=== PATIENT | male | born 1990 ===

== ENCOUNTER 2017-02-20 07:53 | Emergency (ER) | payer OTHER ==
[2017-02-20 08:03] VITALS: BP 116/77; PULSE 84; RESP 20; TEMP 98.4; O2SAT 99
--- NOTE | 2017-02-20 08:21 | C.PDOC ---
History Of Present Illness <Lilo Sebastian - Last Filed: 02/20/17 08:21> <Annetta Stack - Last Filed: 02/21/17 07:14> 26 year old male presents to ED with complaints of midsternal chest pain after injury 2 days ago. He reports throwing trash out and fell out of dumpster hitting his chest. Patient reports pain with movement and deep inspiration. He has not taken any meds and denies any other injury. (Annetta Stack) <Lilo Sebastian - Last Filed: 02/20/17 08:21> - HPI History Per: Patient History/Exam Limitations: no limitations Onset/Duration Of Symptoms: Days <Annetta Stack - Last Filed: 02/21/17 07:14> - HPI Chief Complaint (Nursing): Trauma Past Medical History - Medical History PMH: Denies: Chronic Kidney Disease Family History: States: Unknown Family Hx - Social History Hx Tobacco Use: No Hx Alcohol Use: No Hx Substance Use: No - Immunization History Hx Tetanus Toxoid Vaccination: No Hx Influenza Vaccination: No Hx Pneumococcal Vaccination: No <Lilo Sebastian - Last Filed: 02/20/17 08:21> Reviewed: Historical Data, Nursing Documentation, Vital Signs - Medical History PMH: No Chronic Diseases <Annetta Stack - Last Filed: 02/21/17 07:14> Vital Signs: Last Vital Signs Temp 98.4 F 02/20/17 08:01 Pulse 84 02/20/17 08:01 Resp 20 02/20/17 08:01 BP 116/77 02/20/17 08:01 Pulse Ox 99 02/20/17 08:21 Review Of Systems Constitutional: Negative for: Fever, Chills Cardiovascular: Positive for: Chest Pain. Negative for: Light Headedness Respiratory: Negative for: Shortness of Breath Skin: Negative for: Lesions Neurological: Negative for: Weakness, Headache, Dizziness <Annetta Stack - Last Filed: 02/21/17 07:14> Physical Exam - Physical Exam Appears: Non-toxic, No Acute Distress Skin: Warm, Dry, No Diaphoretic, No Pale, No Rash, No Ecchymosis, Other (No laceration or abrasions) Head: Atraumatic, Normacephalic Eye(s): bilateral: Normal Inspection, PERRL, EOMI Oral Mucosa: Moist Neck: Normal ROM Chest: Symmetrical, No Deformity, Tenderness (Tenderness to anterior midsternal chest wall), No Ecchymosis, No Subcutaneous Emphysema Cardiovascular: Rhythm Regular Respiratory: Normal Breath Sounds, No Rales, No Rhonchi, No Wheezing Gastrointestinal/Abdominal: Soft, No Tenderness Extremity: Normal ROM, No Tenderness Neurological/Psych: Oriented x3, Normal Speech, Other (No focal deficits) <Annetta Stack - Last Filed: 02/21/17 07:14> ED Course And Treatment ECG Rhythm: Sinus Rhythm ECG Interpretation: Normal Rate From EC O2 Sat by Pulse Oximetry: 99 (Room air ) Pulse Ox Interpretation: Normal <Lilo Sebastian - Last Filed: 02/20/17 08:21> Medical Decision Making <Lilo Sebastian - Last Filed: 02/20/17 08:21> <Annetta Stack - Last Filed: 02/21/17 07:14> Medical Decision Makin y.o male with chest wall injury. Exam shows reproducible tenderness. EKG obtained during triage CXR ordered and reviewed showing no acute disease or any rib fracture Motrin PO given for pain (Annetta Stack) Disposition <Lilo Sebastian - Last Filed: 02/20/17 08:21> Counseled Patient/Family Regarding: Need For Followup, Rx Given - Disposition Disposition Time: 09:11 - POA Present On Arrival: None <Annetta Stack - Last Filed: 02/21/17 07:14> - Disposition Disposition: HOME/ ROUTINE Condition: STABLE Additional Instructions: Radiografa no mostrando ninguna fractura aguda. Fabrica medicamentos para el dolor segn sea necesario, ibuprofeno 600mg cada 8 horas con alimentos para no molestar el estmago. Si el dolor persiste, realice un seguimiento con coyle mdico Prescriptions: Ibuprofen [Motrin] 600 mg PO Q8 #30 tab Instructions: Rib Contusion (ED) Forms: Work Excuse Print Language: UPPER SORBIAN - Clinical Impression Clinical Impression: Chest wall contusion Critical Care Time <Lilo Sebastian - Last Filed: 02/20/17 08:21> - PA / REGIONAL SALES LEADER / Resident Statement MD/DO has reviewed & agrees with the documentation as recorded. - Scribe Statement The provider has reviewed the documentation as recorded by the Scribe <Annetta Stack - Last Filed: 02/21/17 07:14> - Scribe Statement Kajal Mendoza All medical record entries made by the Scribe were at my direction and personally dictated by me. I have reviewed the chart and agree that the record accurately reflects my personal performance of the history, physical exam, medical decision making, and the department course for this patient. I have also personally directed, reviewed, and agree with the discharge instructions and disposition. (Annetta Stack)
--- NOTE | 2017-02-20 11:01 | RAD ---
HISTORY: pain s.p injury COMPARISON: 11/06/2016 TECHNIQUE: Chest PA and lateral FINDINGS: LUNGS: No active pulmonary disease. PLEURA: No significant pleural effusion identified. No pneumothorax apparent. CARDIOVASCULAR: Normal. OSSEOUS STRUCTURES: No significant abnormalities. VISUALIZED UPPER ABDOMEN: Normal. OTHER FINDINGS: None. IMPRESSION: No active disease.
--- NOTE | 2017-02-26 20:50 | CARD ---
APPROVED REPORT EKG Measurement Heart [id number] <Conclusion> Normal sinus rhythm Normal ECG
== END 2017-02-20 09:19 | disposition home or self-care (01) ==
LOC: C.ER 07:53
DX: S20.219A Contusion of unspecified front wall of thorax, initial encounter (principal); W22.8XXA Striking against or struck by other objects, initial encounter; Y93.89 Activity, other specified

== ENCOUNTER 2017-02-28 21:02 | Emergency (ER) | payer OTHER ==
[2017-02-28 21:14] VITALS: BP 106/67; PULSE 98; RESP 20; TEMP 98.5; O2SAT 96
[2017-02-28 22:02] LABS: BASO # 0.1 K/uL (0.0-0.2); BASO % 0.6 % (0.0-2.0); EOS # 0.1 K/uL (0.0-0.7); EOS % 0.8 % (0.0-4.0); HEMATOCRIT 44.1 % (35.0-51.0); LYMPH # 3.3 K/uL (1.0-4.3); LYMPH % 34.2 % (20.0-40.0); MEAN CELL VOLUME 89.4 fL (80.0-94.0); MEAN CORPUSCULAR HEMOGLOBIN 30.7 pg (27.0-31.0); MEAN CORPUSCULAR HGB CONC 34.4 g/dL (33.0-37.0); MEAN PLATELET VOLUME 8.6 fL (7.2-11.7); MONO # 0.7 K/uL (0.0-0.8); MONO % 7.8 % (0.0-10.0); RED CELL DISTRIBUTION WIDTH 12.9 % (11.5-14.5); WHITE BLOOD COUNT 9.5 K/uL (4.8-10.8)
[2017-02-28 22:10] LABS: PARTIAL THROMBOPLASTIN TIME 30 SECONDS (21-34)
[2017-02-28 22:18] LABS: CHLORIDE 100 mmol/L (98-107)
[2017-02-28 22:19] LABS: POTASSIUM 3.7 mmol/L (3.6-5.2); SODIUM 138 mmol/L (132-148)
[2017-02-28 22:21] LABS: ALB/GLOB RATIO 1.4 (1.0-2.1); BILIRUBIN,TOTAL 0.5 mg/dL (0.2-1.3); CARBON DIOXIDE 26 mmol/L (22-30); GFR AFRICAN-AMERICAN > 60; TOTAL PROTEIN 7.1 g/dL (6.3-8.3)
[2017-02-28 22:22] LABS: ALKALINE PHOSPHATASE 76 U/L (38-126); ALT/SGPT 33 U/L (21-72); AST/SGOT 24 U/L (17-59); BLOOD UREA NITROGEN 28 mg/dL (9-20); CALCIUM 8.2 mg/dl (8.6-10.4); GLUCOSE,RANDOM 108 mg/dL (75-110)
--- NOTE | 2017-02-28 22:50 | C.PDOC ---
History Of Present Illness Patient is a 26 year old male who presents to the ER for a complaint of chest pain. Patient was seen in the ER a week ago for a complaint chest pain after a garbage bin fell on him. Patient had a CXR done at the time that was negative for any acute abnormalities. 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 Denies nausea, vomiting or SOB. Time Seen by Provider: 02/28/17 21:27 Chief Complaint (Nursing): Chest Pain History Per: Patient History/Exam Limitations: no limitations Onset/Duration Of Symptoms: Hrs Current Symptoms Are (Timing): Still Present Context: Recent Trauma (Garbage bin) Associated Symptoms: denies: Nausea, Other (SOB, vomiting) Modifying Factors: None Exacerbating Factors: None Alleviating Factors: None Recent travel outside of the [place]: No Past Medical History Reviewed: Historical Data, Nursing Documentation, Vital Signs Vital Signs: Last Vital Signs Temp 98.5 F 02/28/17 21:10 Pulse 98 H 02/28/17 21:10 Resp 20 02/28/17 21:10 BP 106/67 02/28/17 21:10 Pulse Ox 96 03/01/17 02:11 - Medical History PMH: No Chronic Diseases Surgical History: No Surg Hx Family History: States: Unknown Family Hx - Social History Hx Tobacco Use: No Hx Alcohol Use: No Hx Substance Use: No - Immunization History Hx Tetanus Toxoid Vaccination: No Hx Influenza Vaccination: No Hx Pneumococcal Vaccination: No Review Of Systems Cardiovascular: Positive for: Chest Pain Respiratory: Negative for: Shortness of Breath Gastrointestinal: Negative for: Nausea, Vomiting Physical Exam - Physical Exam Appears: Well, Non-toxic Skin: Normal Color, Warm, Dry Head: Atraumatic, Normacephalic Oral Mucosa: Moist Chest: Symmetrical, No Tenderness Cardiovascular: Rhythm Regular, No Murmur Respiratory: Normal Breath Sounds, No Rales, No Rhonchi, No Wheezing Gastrointestinal/Abdominal: Soft, No Tenderness Neurological/Psych: Oriented x3, Normal Speech, Normal Cognition ED Course And Treatment - Laboratory Results Result Diagrams: 02/28/17 21:57 02/28/17 21:57 ECG: Interpreted By Me, Viewed By Me ECG Rhythm: Sinus Rhythm ECG Interpretation: No Acute Changes Rate From EC O2 Sat by Pulse Oximetry: 96 (Room air) Pulse Ox Interpretation: Normal - Radiology CXR: Interpreted by Me, Viewed By Me CXR Interpretation: Yes: No Acute Disease Progress Note: EKG and CXR ordered. Toradol administered. Disposition - Disposition Referrals: [facility] [Outside] Disposition: HOME/ ROUTINE Disposition Time: 22:47 Condition: STABLE Additional Instructions: Follow up with PMD within 1-2 days. Return to ED if feel worse. Prescriptions: Ibuprofen [Motrin Tab] 600 mg PO Q8 #30 tab Famotidine [Pepcid] 20 mg PO BID #20 tab Instructions: Chest Wall Pain (ED) Print Language: DUTCH - Clinical Impression Clinical Impression: Chest wall pain - Scribe Statement The provider has reviewed the documentation as recorded by the Scribleonard Nobles All medical record entries made by the Scribe were at my direction and personally dictated by me. I have reviewed the chart and agree that the record accurately reflects my personal performance of the history, physical exam, medical decision making, and the department course for this patient. I have also personally directed, reviewed, and agree with the discharge instructions and disposition.
--- NOTE | 2017-03-01 12:21 | RAD ---
PROCEDURE: CHEST RADIOGRAPH, 1 VIEW HISTORY: SOB, CP COMPARISON: None available. FINDINGS: LUNGS: Clear. PLEURA: No pneumothorax or pleural fluid seen. CARDIOVASCULAR: Normal. OSSEOUS STRUCTURES: Note made of a subtle subclinical levoscoliosis cm lower thoracic region VISUALIZED UPPER ABDOMEN: Normal. OTHER FINDINGS: None. IMPRESSION: No active disease.
--- NOTE | 2017-03-03 13:03 | CARD ---
APPROVED REPORT EKG Measurement Heart [id number] <Conclusion> Normal sinus rhythm Normal ECG
== END 2017-02-28 23:00 | disposition home or self-care (01) ==
LOC: C.ER 21:02
DX: R07.89 Other chest pain (principal)
CPT/HCPCS: 71010; 80053; 82550; 82553; 84484; 85025; 85378; 85610; 85730; 93005; 96374; 99283; J1885

== ENCOUNTER 2017-10-11 07:35 | Emergency (ER) | payer MEDICAID, OTHER ==
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
--- NOTE | 2017-10-11 08:56 | RAD ---
PROCEDURE: Left Foot Radiographs. HISTORY: pain to foot s.p injury COMPARISON: None available. FINDINGS: BONES: No acute displaced fracture. JOINTS: No dislocation. SOFT TISSUES: Unremarkable. No evidence of radiopaque foreign body. OTHER FINDINGS: None. IMPRESSION: No acute displaced fracture, dislocation, or significant joint effusion identified. If symptoms persist, or if there is continued clinical concern, x-ray follow-up in 7-10 days should be considered.
[2017-10-11 09:48] VITALS: BP 130/70; PULSE 70; RESP 20; TEMP 98; O2SAT 99
== END 2017-10-11 09:46 | disposition home or self-care (01) ==
LOC: C.ER 07:35
DX: S90.32XA Contusion of left foot, initial encounter (principal); V09.3XXA Pedestrian injured in unspecified traffic accident, initial encounter; Y92.410 Unspecified street and highway as the place of occurrence of the external cause; B35.3 Tinea pedis

== ENCOUNTER 2017-12-11 16:32 | Emergency (ER) | payer MEDICAID, OTHER ==
[2017-12-11 16:37] VITALS: O2SAT 96
--- NOTE | 2017-12-11 17:24 | C.PDOC ---
History Of Present Illness 27 y/o male presents to the ED complaining of generalized body aches, chills, fever, lightheadedness, cough, congestion, and difficulty breathing since this morning. States he also noticed chest discomfort, worsens with coughing. Denies abdominal pain and vomiting but he feels moderately nauseous. Patient reports taking Theraflu with no relief. HPI: Influenza Time Seen by Provider: 12/11/17 16:49 Chief Complaint: Flu-like Symptoms Chief Complaint (Provider): Flu-like Symptoms History Per: Patient Exam Limitations: no limitations Onset/Duration Of Symptoms: Days (x1) Symptoms include: fever, bodyaches, cough, nasal congestion, chest pain, difficulty breathing Risk factors for flu complications: No: adult > 65 years, child < 5 years, chronic lung disease, endocrine disorders, heart disease, metabolic disease, obesity (BMI > 40), or Past Medical History Reviewed: Historical Data, Nursing Documentation, Vital Signs Vital Signs: Last Vital Signs Temp 99.4 F 12/11/17 16:35 Pulse 115 H 12/11/17 16:35 Resp 20 12/11/17 16:35 BP 134/92 H 12/11/17 16:35 Pulse Ox 96 12/11/17 16:35 - Medical History PMH: No Chronic Diseases Denies: Chronic Kidney Disease Surgical History: No Surg Hx Family History: States: No Known Family Hx - Social History Hx Tobacco Use: No Hx Alcohol Use: No Hx Substance Use: No - Immunization History Hx Tetanus Toxoid Vaccination: No Hx Influenza Vaccination: No Hx Pneumococcal Vaccination: No Review Of Systems Except As Marked, All Systems Reviewed And Found Negative. Constitutional: Positive for: Fever, Chills, Weakness, Other (Bodyaches) Cardiovascular: Positive for: Chest Pain, Light Headedness Respiratory: Positive for: Cough, Shortness of Breath Gastrointestinal: Positive for: Nausea. Negative for: Vomiting, Abdominal Pain , Diarrhea Musculoskeletal: Negative for: Back Pain Physical Exam - Physical Exam Appears: Non-toxic, No Acute Distress Skin: Normal Color, Warm, Dry, No Rash Head: Atraumatic, Normacephalic Eye(s): bilateral: Normal Inspection, PERRL, EOMI Ear(s): Bilateral: Normal Nose: Normal Oral Mucosa: Moist Throat: Normal, No Erythema, No Exudate Neck: Normal ROM, Supple Chest: Symmetrical, No Tenderness Cardiovascular: Rhythm Regular, No Friction Rub, No Murmur Respiratory: Normal Breath Sounds, No Rales, No Rhonchi, No Wheezing Gastrointestinal/Abdominal: Soft, No Tenderness, No Distention Back: Normal Inspection, No CVA Tenderness, No Vertebral Tenderness Extremity: Normal ROM, No Tenderness, No Swelling Extremity: Bilateral: Atraumatic, Normal ROM Neurological/Psych: Oriented x3, Normal Speech, Normal Motor Gait: Steady Medical Decision Making Medical Decision Making: Time: 17:28 Initial Plan: * Tylenol 650 mg PO * Motrin 600 mg PO * Chest x-ray * Reevaluation On re-exam, the patient reports improvement of symptoms. Lungs are CTA, heart is RRR, abdomen is soft, non-tender and tolerating PO well. Ambulatory in the ED steady gait. Follow up with the medical doctor within 1-2 days. Return if worsened. - ECG O2 Sat by Pulse Oximetry: 96 (RA) Pulse Ox Interpretation: Normal - Radiology X-Ray: Interpreted by Me X-Ray Interpretation: No Acute Disease Disposition - Disposition Referrals: [facility] [Outside] Disposition: HOME/ ROUTINE Disposition Time: 18:45 Condition: GOOD Additional Instructions: Follow up with the medical doctor within 1-2 days. Return if worsened. Prescriptions: Acetaminophen [Tylenol] 325 mg PO Q6 PRN #30 tab PRN Reason: Pain, Mild (1-3) Ibuprofen [Motrin] 600 mg PO TID #21 tab Oseltamivir [Tamiflu] 75 mg PO BID #10 cap Instructions: Flu, Adult (DC) Forms: [employer] (Latvian) - Clinical Impression Clinical Impression: Influenza-like illness - PA / SEAFOOD PROCESSOR / Resident Statement MD/DO has reviewed & agrees with the documentation as recorded. - Scribe Statement The provider has reviewed the documentation as recorded by the Scribe (Natacha Shaikh) All medical record entries made by the Scribe were at my direction and personally dictated by me. I have reviewed the chart and agree that the record accurately reflects my personal performance of the history, physical exam, medical decision making, and the department course for this patient. I have also personally directed, reviewed, and agree with the discharge instructions and disposition.
--- NOTE | 2017-12-11 18:25 | RAD ---
HISTORY: cough, fever COMPARISON: Chest x-ray performed 02/28/17 TECHNIQUE: Chest PA and lateral FINDINGS: LUNGS: No focal consolidation. Please note that chest x-ray has limited sensitivity for the detection of pulmonary masses. PLEURA: No significant pleural effusion identified. No definite pneumothorax . CARDIOVASCULAR: The cardiomediastinal silhouette appears within normal limits of size. OSSEOUS STRUCTURES: No acute osseous abnormality identified. VISUALIZED UPPER ABDOMEN: Unremarkable. OTHER FINDINGS: None. IMPRESSION: No focal consolidation identified.
[2017-12-11 19:15] VITALS: BP 122/80; PULSE 101; RESP 17; TEMP 99
== END 2017-12-11 19:16 | disposition home or self-care (01) ==
LOC: C.ER 16:32
DX: J11.1 Influenza due to unidentified influenza virus with other respiratory manifestations (principal)

== ENCOUNTER 2017-12-15 07:15 | Emergency (ER) | payer SELFPAY ==
[2017-12-15 07:24] VITALS: BP 115/80; PULSE 99; RESP 18; TEMP 98.9; O2SAT 98
[2017-12-15] MEDS ORDERED: guaiFENesin 100 mg/5 ml Syrup UD PO STA (07:40)
--- NOTE | 2017-12-15 07:40 | C.PDOC ---
History Of Present Illness 27 y/o male presents to ED requesting work note to get back to work and states symptoms have not improved since 12/11/17 where he was seen at ED for flu like symptoms and given Tamiflu. Patient reports he went back to work 12/13/17 and had to leave because he did not feel well. Patient admits to occasional dayquil and nyquil intake and reports normal po intake. No other complaints at this time. Time Seen by Provider: 12/15/17 07:31 Chief Complaint (Nursing): Flu-like Symptoms History Per: Patient History/Exam Limitations: no limitations Onset/Duration Of Symptoms: Days Current Symptoms Are (Timing): Still Present Associated Symptoms: Nasal Congestion Past Medical History Reviewed: Historical Data, Nursing Documentation, Vital Signs Vital Signs: Last Vital Signs Temp 98.9 F 12/15/17 07:21 Pulse 99 H 12/15/17 07:21 Resp 18 12/15/17 07:21 BP 115/80 12/15/17 07:21 Pulse Ox 98 12/15/17 07:40 - Medical History PMH: No Chronic Diseases Surgical History: No Surg Hx Family History: States: No Known Family Hx - Social History Hx Tobacco Use: No Hx Alcohol Use: No Hx Substance Use: No - Immunization History Hx Tetanus Toxoid Vaccination: No Hx Influenza Vaccination: No Hx Pneumococcal Vaccination: No Review Of Systems Constitutional: Positive for: Fever. Negative for: Chills ENT: Positive for: Nose Congestion Respiratory: Positive for: Cough Gastrointestinal: Negative for: Nausea, Vomiting Physical Exam - Physical Exam Appears: Non-toxic, No Acute Distress Skin: Warm, Dry, No Rash Head: Atraumatic, Normacephalic Eye(s): bilateral: Normal Inspection Ear(s): Bilateral: Normal Oral Mucosa: Moist Throat: Normal, No Erythema, No Exudate Neck: Normal ROM, Supple Cardiovascular: Rhythm Regular Respiratory: Normal Breath Sounds, No Rales, No Rhonchi, No Wheezing Gastrointestinal/Abdominal: Soft, No Tenderness, No Guarding, No Rebound Extremity: Normal ROM, Capillary Refill (<2 seconds) Neurological/Psych: Oriented x3, Normal Speech ED Course And Treatment O2 Sat by Pulse Oximetry: 98 (RA) Pulse Ox Interpretation: Normal Medical Decision Making Medical Decision Making: seen 12/11 for same. 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 normal exam. work note til thurs Disposition Doctor Will See Patient In The: Office Counseled Patient/Family Regarding: Studies Performed, Diagnosis - Disposition Referrals: [facility] [Outside] [facility] [Outside] Disposition: HOME/ ROUTINE Disposition Time: 07:39 Condition: GOOD Additional Instructions: finish out the Tamilflu [place] use of Dayquil/Nyquil (or equivelent) for symptomatic relief. NO work until afebrile for 24 hours. Instructions: Flu, Adult (DC) Forms: [employer] (Samoan), Work Excuse - Clinical Impression Clinical Impression: Flu-like symptoms - Scribe Statement The provider has reviewed the documentation as recorded by the Scribleonard Mendoza All medical record entries made by the Antonietaibe were at my direction and personally dictated by me. I have reviewed the chart and agree that the record accurately reflects my personal performance of the history, physical exam, medical decision making, and the department course for this patient. I have also personally directed, reviewed, and agree with the discharge instructions and disposition.
[2017-12-15] MEDS ORDERED: guaiFENesin 100 mg/5 ml Syrup UD ONE (07:53)
== END 2017-12-15 07:54 | disposition home or self-care (01) ==
LOC: C.ER 07:15
DX: J11.1 Influenza due to unidentified influenza virus with other respiratory manifestations (principal)

== ENCOUNTER 2018-09-05 06:05 | Emergency (ER) | payer MEDICAID ==
[2018-09-05 06:21] VITALS: BP 121/82; PULSE 82; RESP 18; TEMP 98; O2SAT 100
--- NOTE | 2018-09-05 07:24 | C.PDOC ---
History Of Present Illness 27 year old male presents to ED for evaluation of generalized body aches, chills, cough, sore throat, and headache for the last few days. Notes he tried over the counter Theraflu without relief. Denies shortness of breath, nausea, vomiting, abdominal pain, or fever. Time Seen by Provider: 09/05/18 07:06 Chief Complaint (Nursing): Flu-like Symptoms History Per: Patient History/Exam Limitations: no limitations Onset/Duration Of Symptoms: Days Current Symptoms Are (Timing): Still Present Location Of Pain: Throat, Diffuse Myalgias, Headache Sick Contacts (Context): None Associated Symptoms: Chills, Sore Throat, Cough, Myalgias Recent travel outside of the [place]: No Additional History Per: Patient Past Medical History Reviewed: Historical Data, Nursing Documentation, Vital Signs Vital Signs: Last Vital Signs Temp 98.0 F 09/05/18 06:18 Pulse 82 09/05/18 06:18 Resp 18 09/05/18 06:18 BP 121/82 09/05/18 06:18 Pulse Ox 100 09/05/18 06:18 - Medical History PMH: No Chronic Diseases Family History: States: Unknown Family Hx - Social History Hx Tobacco Use: No Hx Alcohol Use: No Hx Substance Use: No - Immunization History Hx Tetanus Toxoid Vaccination: No Hx Influenza Vaccination: No Hx Pneumococcal Vaccination: No Review Of Systems Constitutional: Positive for: Chills, Other (body aches) Eyes: Negative for: Eyelid Inflammation, Redness ENT: Positive for: Throat Pain. Negative for: Ear Pain Cardiovascular: Negative for: Chest Pain Respiratory: Positive for: Cough. Negative for: Shortness of Breath Gastrointestinal: Negative for: Nausea, Vomiting, Abdominal Pain Musculoskeletal: Negative for: Neck Pain Skin: Negative for: Rash Neurological: Positive for: Headache. Negative for: Weakness, Numbness, Dizziness Physical Exam - Physical Exam Appears: Non-toxic, No Acute Distress Skin: Normal Color, Warm, Dry Head: Atraumatic, Normacephalic Eye(s): bilateral: Normal Inspection, EOMI Ear(s): Bilateral: Normal Nose: Normal Oral Mucosa: Moist Throat: Normal, No Erythema, No Exudate, No Drooling Neck: Normal ROM, Supple Cardiovascular: Rhythm Regular, No Murmur Respiratory: Normal Breath Sounds, No Rales, No Rhonchi, No Wheezing Gastrointestinal/Abdominal: Soft, No Tenderness Extremity: Bilateral: Atraumatic, Normal Color And Temperature, Normal ROM Neurological/Psych: Oriented x3, Normal Speech ED Course And Treatment O2 Sat by Pulse Oximetry: 100 (on RA) Pulse Ox Interpretation: Normal Medical Decision Making Medical Decision Making: Patient with complaints of multiple symptoms, likely viral. Physical examination did not reveal any acute findings. Patient had no fever and in no respiratory distress. Vital signs stable. No nuchal rigidity or neuro deficits. No signs of dehydration. Patient is stable for discharge. Recommend supportive treatment for symptom relief of viral illness. Advise rest and fluids and to follow up with PMD or clinic in few days. If symptoms do not resolve in 5 days will need re- eval. Disposition Counseled Patient/Family Regarding: Diagnosis, Need For Followup, Rx Given - Disposition Referrals: Yu Leahy MD [Staff Provider] - Disposition: HOME/ ROUTINE Disposition Time: 07:21 Condition: GOOD Additional Instructions: You have viral upper respiratory infection. Take Tylenol or Motrin alternating every 4-6 hours for Fever 100.4F or higher. Rest and drink plenty of fluids. May use cool mist humidifier or vaporizer in room. Try taking over the counter antihistamine (Claritin, Soraya, Zyrtec), Decongestant or Cough medicine as needed every 6-8 hours. Follow up with your primary medical doctor or clinic in 1 week for further evaluation. 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 - Scribe Statement The provider has reviewed the documentation as recorded by the Scribe Moy Azar All medical record entries made by the Scribe were at my direction and personally dictated by me. I have reviewed the chart and agree that the record accurately reflects my personal performance of the history, physical exam, medical decision making, and the department course for this patient. I have also personally directed, reviewed, and agree with the discharge instructions and disposition.
== END 2018-09-05 07:32 | disposition home or self-care (01) ==
LOC: C.ER 06:05
DX: J11.1 Influenza due to unidentified influenza virus with other respiratory manifestations (principal)

== ENCOUNTER 2018-09-12 17:54 | Emergency (ER) | payer MEDICAID ==
[2018-09-12 17:57] VITALS: BMI 27.2
--- NOTE | 2018-09-12 18:28 | C.PDOC ---
History Of Present Illness 27 y/o male pt presents to the ER c/o sudden onset of chest pain and SOB. Associated sx includes headaches. Pt reports pain is intermittent and started when he was working. 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 Pt denies cough, fever, vomiting, diarrhea and similar sx in the past. Time Seen by Provider: 09/12/18 18:14 Chief Complaint (Nursing): Chest Pain History Per: Patient History/Exam Limitations: no limitations Onset/Duration Of Symptoms: Hrs, Sudden Onset Current Symptoms Are (Timing): Still Present Past Medical History Reviewed: Historical Data, Nursing Documentation, Vital Signs Vital Signs: Last Vital Signs Temp 98.2 F 09/12/18 17:58 Pulse 93 H 09/12/18 17:58 Resp 17 09/12/18 17:58 BP 129/76 09/12/18 17:58 Pulse Ox 98 09/12/18 17:58 Family History: States: Unknown Family Hx - Social History Hx Tobacco Use: No Hx Alcohol Use: No Hx Substance Use: No - Immunization History Hx Tetanus Toxoid Vaccination: No Hx Influenza Vaccination: No Hx Pneumococcal Vaccination: No Review Of Systems Except As Marked, All Systems Reviewed And Found Negative. Constitutional: Negative for: Fever Cardiovascular: Positive for: Chest Pain Respiratory: Positive for: Shortness of Breath. Negative for: Cough Gastrointestinal: Negative for: Vomiting, Diarrhea Neurological: Positive for: Headache Physical Exam - Physical Exam Appears: Non-toxic, No Acute Distress Skin: Warm, Dry Head: Normacephalic Eye(s): bilateral: Normal Inspection, EOMI Chest: Symmetrical, Tenderness (right upper chest ), Other (painful on expi ration) Cardiovascular: Rhythm Regular Respiratory: Normal Breath Sounds Extremity: Normal ROM (x4) Neurological/Psych: Oriented x3, Normal Speech ED Course And Treatment - Laboratory Results Result Diagrams: 09/12/18 18:30 09/12/18 18:30 ECG: Interpreted By Me, Viewed By Me ECG Rhythm: Sinus Rhythm ECG Interpretation: Normal Interpretation Of ECG: no ST/T changes Rate From EC O2 Sat by Pulse Oximetry: 98 (RA) Pulse Ox Interpretation: Normal Medical Decision Making Medical Decision Making: Impression: muscular skeletal pain Plans: -- chem labs -- blood work -- CXR -- Toradol -- flexeril The pt is feeling better and all labs, cxr are unremarkable. Pt agrees to follow up with his pcp. Disposition - Disposition Disposition: HOME/ ROUTINE Disposition Time: 19:12 Condition: GOOD Prescriptions: Diazepam [Valium] 5 mg PO Q12 2 Days #4 tablet Ibuprofen [Motrin] 600 mg PO Q6 #20 tab Forms: [employer] (Urdu) - Clinical Impression Clinical Impression: Muscle pain - Scribe Statement The provider has reviewed the documentation as recorded by the Hebert Salas Do Provider Attestation: All medical record entries made by the Antonietaibleonard were at my direction and personally dictated by me. I have reviewed the chart and agree that the record accurately reflects my personal performance of the history, physical exam, medical decision making, and the department course for this patient. I have also personally directed, reviewed, and agree with the discharge instructions and disposition.
--- NOTE | 2018-09-12 18:29 | C.PDOC ---
Time Seen by Provider: 09/12/18 18:14 Chief Complaint (Nursing): Chest Pain Past Medical History Vital Signs: Last Vital Signs Temp 98.2 F 09/12/18 17:58 Pulse 93 H 09/12/18 17:58 Resp 17 09/12/18 17:58 BP 129/76 09/12/18 17:58 Pulse Ox 98 09/12/18 17:58 - Medical History PMH: Denies: Chronic Kidney Disease Family History: States: Unknown Family Hx - Social History Hx Tobacco Use: No Hx Alcohol Use: No Hx Substance Use: No - Immunization History Hx Tetanus Toxoid Vaccination: No Hx Influenza Vaccination: No Hx Pneumococcal Vaccination: No ED Course And Treatment O2 Sat by Pulse Oximetry: 98 Disposition - Disposition
[2018-09-12 18:35] LABS: BASO # 0.1 K/uL (0.0-0.2); BASO % 0.9 % (0.0-2.0); EOS # 0.1 K/uL (0.0-0.7); EOS % 0.8 % (0.0-4.0); HEMOGLOBIN 16.1 g/dL (12.0-18.0); LYMPH # 2.5 K/uL (1.0-4.3); LYMPH % 23.7 % (20.0-40.0); MEAN CELL VOLUME 91.3 fL (80.0-94.0); MEAN CORPUSCULAR HEMOGLOBIN 30.6 pg (27.0-31.0); MEAN CORPUSCULAR HGB CONC 33.5 g/dL (33.0-37.0); MEAN PLATELET VOLUME 8.7 fL (7.2-11.7); MONO # 0.9 K/uL (0.0-0.8); MONO % 8.9 % (0.0-10.0); NEUT # 6.9 K/uL (1.8-7.0); NEUT % 65.7 % (50.0-75.0); RBC 5.27 Mil/uL (4.40-5.90); RED CELL DISTRIBUTION WIDTH 13.8 % (11.5-14.5); WHITE BLOOD COUNT 10.5 K/uL (4.8-10.8)
[2018-09-12 18:48] LABS: ALB/GLOB RATIO 1.5 (1.0-2.1); ALBUMIN 4.4 g/dL (3.5-5.0); ALT/SGPT 55 U/L (21-72); AST/SGOT 28 U/L (17-59); BLOOD UREA NITROGEN 28 mg/dL (9-20); CALCIUM 8.8 mg/dl (8.6-10.4); GFR NON-AFRICAN AMERICAN > 60
[2018-09-12 19:29] VITALS: BP 132/76; PULSE 95; RESP 18; TEMP 98.1; O2SAT 95
--- NOTE | 2018-09-13 08:35 | RAD ---
Date of service: 09/12/2018 PROCEDURE: CHEST RADIOGRAPH, 1 VIEW HISTORY: chest pain COMPARISON: Comparison is made with 12/11/2017 FINDINGS: LUNGS: No evidence of new infiltrate or consolidation in the lungs PLEURA: No pneumothorax or pleural fluid seen. CARDIOVASCULAR: No aortic atherosclerotic calcification present. Normal. OSSEOUS STRUCTURES: No significant abnormalities. VISUALIZED UPPER ABDOMEN: Normal. OTHER FINDINGS: None. IMPRESSION: No active disease.
--- NOTE | 2018-09-14 17:09 | CARD ---
APPROVED REPORT Date of service: 09/12/2018 EKG Measurement Heart [id number] <Conclusion> Normal sinus rhythm Normal ECG
== END 2018-09-12 19:29 | disposition home or self-care (01) ==
LOC: C.ER 17:54
DX: M79.10 Myalgia, unspecified site (principal)
CPT/HCPCS: 71045; 80053; 84484; 85025; 93005; 96374; 99284; J1885